=== PATIENT | male | born 1995 | race Hispanic/Latino ===

== ENCOUNTER 2021-07-26 08:02 | Emergency (ER) | payer OTHER ==
[~2021-07-26] VITALS: Ht 172.7 cm; Wt 68.0 kg
[2021-07-26 08:32] LABS: BASOPHILS % (AUTO) 0.2 % (0.0-5.0); EOSINOPHILS % (AUTO) 0.5 % (0.0-8.0); HEMATOCRIT 44.2 % (36-48); LYMPHOCYTES % (AUTO) 4.2 % (21.0-51.0); MEAN CORPUSCULAR HEMOGLOBIN 30.5 pg (27.0-33.0); MEAN CORPUSCULAR HGB CONC 34.6 g/dL (32.0-36.0); MONOCYTES % (AUTO) 2.8 % (3.0-13.0); PLATELET COUNT (AUTO) 216 K/uL (130-400); RED BLOOD CELL COUNT(AUTO) 5.02 MIL/uL (4.00-5.50); RED CELL DISTRIBUTION WIDTH 12.3 % (11.0-15.5); WHITE BLOOD COUNT (AUTO) 17.7 K/uL (4.8-10.8)
[2021-07-26 08:46] LABS: PROTHROMBIN TIME 10.9 SEC (9.6-11.6)
[2021-07-26 08:47] LABS: PARTIAL THROMBOPLASTIN TIME 25.6 SEC (26.3-35.5)
[2021-07-26 08:50] LABS: ALBUMIN 4.2 g/dL (3.5-5.0); BILIRUBIN,TOTAL 0.7 mg/dL (0.2-1.0); TOTAL PROTEIN, SERUM 7.5 g/dL (6.0-8.3)
[2021-07-26 09:31] LABS: B-TYPE NATRIURETIC PEPTIDE < 5 pg/mL (0-100)
[2021-07-26 11:30] VITALS: BP 129/91
[2021-07-26] MEDS: LACTATED RINGERS 1000ML 2,000 ML IV SCH (12:30)
[2021-07-26] MEDS: POTASSIUM CHLORIDE 10MEQ SR TAB PO SCH (12:30)
== END 2021-07-26 12:23 | disposition left against medical advice (07) ==
LOC: EDH 08:02 → EDSEX 08:02 → EDH 12:23
DX: R07.89 Other chest pain (principal); R53.1 Weakness; R53.83 Other fatigue; Z20.822 Contact with and (suspected) exposure to COVID-19; F17.210 Nicotine dependence, cigarettes, uncomplicated
CPT/HCPCS: 36415; 71045; 80053; 82550; 83880; 84484; 85025; 85610; 85730; 87635; 87804 ×2; 87880; 93005; 99285; C9803